=== PATIENT | male | born 1985 | race Caucasian/White ===

== ENCOUNTER 2021-08-03 09:09 | Outpatient (REF) | payer OTHER, SELFPAY ==
[2021-08-03 12:25] LABS: Thyroid Stimulating Hormone 1.33 uIU/mL (0.32-4.0)
== END 2021-08-03 09:10 | disposition home or self-care (01) ==
LOC: HO.HMGCLDS 09:09
PROVIDERS: Visit Provider Internal Medicine
DX: F41.1 Generalized anxiety disorder (principal)
CPT/HCPCS: 36415; 84443

== ENCOUNTER 2021-08-17 09:05 | Outpatient (REF) | payer OTHER, SELFPAY ==
[2021-08-23 14:56] LABS: Testosterone, Free 100.4 pg/mL (35.0-155.0); Testosterone, Total 648 ng/dL (250-1100)
== END 2021-08-17 09:06 | disposition home or self-care (01) ==
LOC: HO.HMGCLDS 09:05
PROVIDERS: PCP Internal Medicine; Visit Provider Internal Medicine
DX: F41.1 Generalized anxiety disorder (principal)
CPT/HCPCS: 36415; 84402; 84403

== ENCOUNTER 2024-10-31 14:32 | Outpatient (AMB) | payer BC, SELFPAY ==
--- NOTE | 2024-10-31 14:37 | A.OFFPC_ITS ---
Vital Signs 10/31/24 14:39 Height 5 ft 5.55 in Weight 171 lb 6 oz BMI 28.0 BP 132/72 Blood Pressure Location Lt brachial Position Sitting Pulse 88 Pulse Source Pulse Oximeter Temp 97.3 F Temp Source Temporal Artery Scan Pulse Oximetry (%) 97 Oxygen Delivery Method Room Air Intake Visit Reasons: annual exam/re-establishing care Intake Note: Patient is a new patient here to establish care for Right shoulder pain, Back pain, Testosterone issues. Transferring care from Dr Lawler. Medical records have not been requested and have note received. Employee Placement Specialist Required: No Clinical Researcher: Not Required per policy Accompanied by: Self / Same As Patient Allergies No Known Allergies Allergy (Verified 10/31/24 14:38) Tobacco use date assessed: 10/31/24 Dental Screening Dental Screen Date: 10/31/24 Did you have a dental visit in the last 12 months?: Yes Did you have a dental problem in the last 6 months where you did not have access to dental care?: No Was dental information given to patient?: Patient has dentist [facility] Medical History (Updated 10/31/24 @ 15:48 by Jeremías Lawler MD) Biceps tendinitis Generalized anxiety disorder Surgical History (Updated 10/31/24 @ 15:16 by TITI Mancini) History of wisdom tooth extraction Family History Mother Depression Back disorder Father No problems noted. Other Mental health disorder Social History Housing: Apartment Alcohol intake: current Alcohol intake frequency: a few times a week Patient Tobacco Use Status: Never used Tobacco e-Cigarette/Vaping Use: Never Used Second Hand Smoke Exposure: No service: No Current occupational status: employed Current occupation: Insurance Cognitive needs: No Hearing needs: No Vision needs: No Questionnaire PHQ-9 Over the last 2 weeks, how often have you been bothered by any of the following problems? 1. Little interest or pleasure in doing things: not at all 2. Feeling down, depressed, or hopeless: not at all 3. Trouble falling or staying asleep, or sleeping too much: not at all 4. Feeling tired or having little energy: not at all 5. Poor appetite or overeating: not at all 6. Feeling bad about yourself - or that you are a failure or have let yourself or your family down: not at all 7. Trouble concentrating on things, such as reading the newspaper or watching television: not at all 8. Moving or speaking so slowly that other people could have noticed. Or the opposite - being so fidgety or restless that you have been moving around a lot more than usual: not at all 9. Thoughts that you would be better off or of hurting yourself in some way: not at all Total score: 0 Depression Screening Interpretation: Positive Depression Screening Done: Yes Source: Developed by Drs. Noel Melgoza, Elizabeth Perea, Bradley Vela and colleagues, with an educational sreedhar from [employer]. Thrive Questionnaire Date Thrive assessed: 10/29/24 I am a: Patient What is your living situation today?: I have a steady place to live Within the past 12 months, did the food you bought not last and you didn't have the money to get more?: Never true Within the past 12 months, did you worry whether your food would run out before you got money to buy more?: Never true Do you have trouble paying for medicines?: No Do you have trouble getting transportation to medical appointments?: No Do you have trouble paying your heating and electricity bill?: No Do you have trouble taking care of your child, family member or friend?: No Do you have trouble with day-to-day activities such as bathing, preparing meals, shopping, managing finances, etc.?: No Are you currently unemployed and looking for a job?: No Are you interested in more education?: No Please select the resources that you would like help with: None Currently or been in a relationship where the following occur: No concerns reported THRIVE Score: 0 AUDIT C Alcohol Use Questionnaire (AUDIT-C) 1. How often do you have a drink containing alcohol?: 2-3 times a week 2. How many drinks containing alcohol do you have on a typical day when you are drinking?: 3 or 4 3. How often do you have six or more drinks on one occasion?: Less than monthly Total Score: 5 SHIRA-7 AMB Questionnaire SHIRA-7 Date SHIRA - 7 assessed: 10/31/24 Feeling nervous, anxious, or on edge: 0 = Not at all Not being able to stop or control worryin = Not at all Worrying too much about different things: 0 = Not at all Trouble relaxin = Not at all Being so restless that it is hard to sit still: 0 = Not at all Becoming easily annoyed or irritable: 0 = Not at all Feeling afraid as if something awful might happen: 0 = Not at all Total SHIRA-7 score (0-4 normal; 5-9 mild; 10-14 moderate; 15-21 severe): 0 Source: Developed by Drs. Noel Melgoza, Elizabeth Perea, Bradley Vela and colleagues, with an educational sreedhar from [employer]. Physical exam (Primary Care) Vital Signs: Last Vital Signs Temp 97.3 F 10/31/24 14:39 Pulse 88 10/31/24 14:39 BP 132/72 10/31/24 14:39 Pulse Ox 97 10/31/24 14:39 Oxygen Delivery Method Room Air 10/31/24 14:39 BMI result Body Mass Index 28.0 Tobacco/Smoking Status: Tobacco use Status Tobacco use date assessed 10/31/24 10/31/24 15:00 Patient Tobacco Use Status Never used Tobacco 10/31/24 15:00 e-Cigarette/Vaping Use Never Used 10/31/24 15:00 PHQ-9: PHQ-9 Score PHQ-9: Total score 0 10/31/24 15:00 Depression Screening Interpretation: Positive Thrive Assessment: Date of Thrive Assessment Date Thrive assessed 10/29/24 10/31/24 15:00 Currently or been in a relationship where the following occur: No concerns reported Coding Level of Care Code New Pt Level 4 (59134) Complex EM visit Add On G2211 Diagnoses Biceps tendinitis M75.20 Assessment & Plan Assessment & Plan (1) Biceps tendinitis: Code(s): M75.20 - Bicipital tendinitis, unspecified shoulder Category: Medical Plan: ortho referral made. Plan History of Present Illness - The patient is a 39-year-old male presenting for management of low testosterone and associated symptoms, as well as for referrals to specialists. - Reports a history of anxiety and brain fog, initially managed with Wellbutrin without success. - Approximately eight months ago, sought care from a functional [facility] doctor due to worsening symptoms. - Blood tests revealed testosterone levels around 500 ng/dL, leading to treatment with enclomiphene, which improved testosterone levels to approximately 1000 ng/dL. - Reports significant improvement in symptoms, including mental clarity, energy levels, and libido. - Experiencing muscle cramps in the calves and ankles, particularly at night, despite adequate hydration and electrolyte intake. - Prominent veins noted, which are not causing health concerns but are cosmetically noticeable. - History of biceps tendinitis, managed by an employee placement specialist. Social History - Family status: Recently with twins, two girls and two boys. - Exercise: Engages in significant physical activity, particularly involving the legs. - Hydration: Consumes at least a gallon of water daily. Review of Systems - Neurological: Reports brain fog and anxiety. Denies other neurological symptoms. - Musculoskeletal: Reports muscle cramps in calves and ankles, particularly at night. Denies other musculoskeletal symptoms. - Endocrine: Reports improvement in symptoms with enclomiphene treatment for low testosterone. Physical Exam General: Cooperative and healthy appearing Nutritional Appearance: Well nourished Orientation/consciousness: Patient oriented x3 Limitations: No limitations Head: Normal to inspection General: Appearance normal, both eyes and all related structures Neck: Normal visual inspection Chest: Normal palpation of entire chest wall Respiratory: N ormal respiratory effort Neurology: Patient oriented x3, reports previous issues with brain fog and anxiety, now resolved with treatment. Results - Labs: Testosterone level initially around 500 ng/dL, improved to approximately 1000 ng/dL with enclomiphene treatment. Plan 1. Anxiety - Continue monitoring symptoms and consider referral to mental health specialist if symptoms persist. 2. Low Testosterone - Continue enclomiphene treatment as it has shown significant improvement in symptoms. - Referral to [facility] for ongoing management. 3. Biceps Tendinitis - Referral to employee placement specialist for continued management. 4. Muscle Cramps - Consider increasing electrolyte intake and CoQ10 supplementation. 5. Prominent Veins - No immediate medical intervention required unless for cosmetic reasons. Discussion Notes I discussed with the patient the continuation of enclomiphene treatment for low testosterone, which has been effective in alleviating symptoms. We also talked about the need for referrals to [facility] and an employee placement specialist for ongoing management of low testosterone and biceps tendinitis, respectively. I advised the patient to consider increasing electrolyte intake and CoQ10 supplementation for muscle cramps. We also discussed that the prominent veins are not a health concern but can be addressed cosmetically if desired. Patient Instructions - Continue enclomiphene treatment as prescribed. - Follow up with [facility] for testosterone management. - Consult with an employee placement specialist for biceps tendinitis management. - Increase electrolyte intake and consider CoQ10 supplementation for muscle cramps. - Consider cosmetic options if concerned about prominent veins. Orders: Referrals Orthopedics Referral M75.20 - Bicipital tendinitis, unspecified shoulder
[2024-10-31 14:39] VITALS: BP 132/72; PULSE 88; TEMP 36.3; O2SAT 97; BMI 28.0
--- OUTSIDE RECORDS SUMMARY | 2024-10-31 14:44 | XMS_ITS | Patient Health Record ---
Demographics Address [address] [place] [address] Mobile Email Address Preferred Language en Marital Status unmarried Confucianism Affiliation Unknown Race White Ethnic Group Not or Lati no Author [facility] Address [address] [place] [address] Care Team Providers Care Veterans' Coordinator Name Role Phone Haider Fischer MD Primary Care Provider Mary Orosco Unavailable [phone] Allergies No Known Allergies Reason For Referral No Information Medications Medication SIG (Take, Route, Frequency, Duration) Notes Start Date End Date Status Terbinafine HCl 250 MG Oral; Duration: 28 Not-Taking Social History Tobacco Use: Social History Observation Description Date Details (start date - stop date) Never Smoker NA - NA Tobacco Use/Smoking Question Answer Notes Are you a: nonsmoker Additional Findings: Tobacco Non-User Non-smoker for personal reasons Alcohol Screen Question Answer Notes Did you have a drink contain ing alcohol in the past year? Yes How often did you have a dri nk containing alcohol in the past year? 2 to 3 times a week (3 points) How often did you have 6 or more drinks on one occasion in the past year? Weekly (3 points) Points 6 Interpretation Positive Tobacco use other than smoking: Question Answer Notes Are you an other tobacco user? No Plan Of Treatment No Information Insurance Providers Payer Name Payer Address Payer Phone Subscriber Number Group Number Insured Name Patient Relationship to Insured Coverage Start Date Coverage End Date [facility] [id number] [address] [address] [place] [address] [phone] [id number] Humberto Boateng Self - patient is the insured Medical (General) History Medical History History ICD Code Chicken pox Surgical History Surgery Date(Month/Year)
--- OUTSIDE RECORDS SUMMARY | 2024-10-31 14:44 | XMS_ITS | Data Portability ---
Author Organization [place] - [facility], [facility] Address [address] [place] [id number] Assessment No assessment recorded. Plan of Treatment Reminders Order Date Submit Date Provider Last Modified By Organization Details Last Modified Time Details Appointments None recorded. Lab surgical pathology study - PAS for fungal nails 2018 019 [email or web address] [facility] ([employer]), [address] [facility], [place], [address], 9 08:40:43 Referral None recorded. Procedures None recorded. Surgeries None recorded. Imaging None recorded. Medication Orders None recorded. Patient TargetsNo targets recorded. Patient Instructions Encounter Date Encounter Id Patient Instructions Last Modified By Organization Details Last Modified Time 09/27/2018 [id number] Discussed with patient today the various options of treating fungal nails. This includes the following: regular trimming of thickened nails, removal of nail to see if a normal nail will grow back, topical antifungal (advised there is about 20% improvement rate), oral antifungal medication (80% improvement) and laser treatment (40% improvement rate). We also discussed the recurrence rate of fungus to the nails and the need to sterilize shoes and take care of any tinea pedis to prevent recurrence of the problem once healed. Today a sample of the nail was sent for evaluation to determine if there is a fungus and patient will be called when the results are returned. As well today used Dremel to reduce thickness of the nail. He wanted Keryflex but was not a good candidate as well due to possible fungus of the nail. [email or web address] Not available 09/27/2018 16:18:57 Reason for Referral None Reported. Results Created Date Observation Date Name Description Value Unit Range Abnormal Flag Note LastModifiedBy Organization Detail LastModifiedTime 10/16/19 19 10/15/2018 hepat ic funct ion panel , serum protein, total 7.0 g/dL 6.1-8. 1 normal Not Available [facility] [place] [facility] [address], [place], [address], 10/15/2018 20:23:20 10/16/1910/15/2018 hepat ic funct ion panel , serum protein, total 7.0 g/dL 6.1-8. 1 normal Not Available [facility] [address], [place], [address], 10/15/2018 20:23:20 10/16/1910/15/2018 hepat ic funct ion panel , serum albumin 4.6 g/dL 3.6-5. 1 normal Not Available [facility] [address], [place], [address], 10/15/2018 20:23:20 10/16/1910/15/2018 hepat ic funct ion panel , serum albumin 4.6 g/dL 3.6-5. 1 normal Not Available [facility] [address], [place], [address], 10/15/2018 20:23:20 10/16/1910/15/2018 hepat ic funct ion panel , serum globulin 2.4 g/dL_ (calc ) 1.9-3. 7 normal Not Available [facility] [address], [place], [address], 10/15/2018 20:23:20 10/16/1910/15/2018 hepat ic funct ion panel , serum globulin 2.4 g/dL_ (calc ) 1.9-3. 7 normal Not Available [facility] [address], [place], [address], 10/15/2018 20:23:20 10/16/19 19 10/15/2018 hepat ic funct ion panel , serum albumin/glob ulin ratio 1.9 (calc ) 1.0-2. 5 normal Not Available [facility] [place] [facility] [address], [place], [address], 10/15/2018 20:23:20 10/16/19 19 10/15/2018 hepat ic funct ion panel , serum albumin/glob ulin ratio 1.9 (calc ) 1.0-2. 5 normal Not Available [facility] [place] [facility] [address], [place], [address], 10/15/2018 20:23:20 10/16/19 19 10/15/2018 hepat ic funct ion panel , serum bilirubin, total 1.5 mg/dL 0.2-1. 2 high Not Available [facility] [address], [place], [address], 10/15/2018 20:23:20 10/16/1910/15/2018 hepat ic funct ion panel , serum bilirubin, total 1.5 mg/dL 0.2-1. 2 high Not Available [facility] [address], [place], [address], 10/15/2018 20:23:20 10/16/1910/15/2018 hepat ic funct ion panel , serum bilirubin, direct 0.3 mg/dL < or = 0.2 high Not Available [facility] [address], [place], [address], 10/15/2018 20:23:20 10/16/1910/15/2018 hepat ic funct ion panel , serum bilirubin, direct 0.3 mg/dL < or = 0.2 high Not Available [facility] [address], [place], [address], 10/15/2018 20:23:20 10/16/19 19 10/15/2018 hepat ic funct ion panel , serum bilirubin, indirect 1.2 mg/dL _(judit c) 0.2-1. 2 normal Not Available [facility] [address], [place], [address], 10/15/2018 20:23:20 10/16/19 19 10/15/2018 hepat ic funct ion panel , serum bilirubin, indirect 1.2 mg/dL _(judit c) 0.2-1. 2 normal Not Available [facility] [place] [facility] [address], [place], [address], 10/15/2018 20:23:20 10/16/19 19 10/15/2018 hepat ic funct ion panel , serum alkaline phosphatase 66 U/L 40-115 normal Not Available [facility] [address], [place], [address], 10/15/2018 20:23:20 10/16/1910/15/2018 hepat ic funct ion panel , serum alkaline phosphatase 66 U/L 40-115 normal Not Available [facility] [address], [place], [address], 10/15/2018 20:23:20 10/16/1910/15/2018 hepat ic funct ion panel , serum AST 23 U/L 10-40 normal Not Available [facility] [address], [place], [address], 10/15/2018 20:23:20 10/16/1910/15/2018 hepat ic funct ion panel , serum AST 23 U/L 10-40 normal Not Available [facility] [address], [place], [address], 10/15/2018 20:23:20 10/16/19 19 10/15/2018 hepat ic funct ion panel , serum ALT 21 U/L 9-46 normal Not Available [facility] [address], [place], [address], 10/15/2018 20:23:20 10/16/19 19 10/15/2018 hepat ic funct ion panel , serum ALT 21 U/L 9-46 normal Not Available [facility] [address], [place], [address], 10/15/2018 20:23:20 10/16/19 19 10/15/2018 hepat ic funct ion panel , serum copy(ies) sent to: DANIEL NEGRON N [address] [id number] Not Available [facility] [address], [address], 10/15/2018 20:23:20 Result Notes None recorded. Problems No Known Problems Medical Equipment None Reported. Allergies No known drug allergies Medications Name Sig Start Date Stop Date Status Note LastModified by Organization Details LastModified Time terbinafine HCl 250 mg tablet TAKE ONE TABLET BY MOUTH EVERY WEEK DIRECTED active Not Available Not Available No t Available mometasone 0.1 % topical cream 09/27 completed Not Available Not Available Not Available azithromyci n 500 mg tablet 09/27 completed Not Available Not Available Not Available Vitals Date Recorded Body height Body mass index (BMI) Body weight Provider Name and Address Organization Details Last Updated DateTime 09/27/2018 167.64 cm 29.1 kg/m2 94156.63 g Niyah Gandara [facility] 09/27/2018 15:40:00 Social History Question Answer Notes LastModified by Organizat ion Details LastModified Time Tobacco Smoking Status Never Smoker Alice murphy [facility] 09/27/2018 15:35:58 Do You Have An Advance Directive? No Information not available 09/27/2018 What Is Your Shoe Size & Width? 10.5 Med Information not available 09/27/2018 What Was The Date Of Your Most Recent Tobacco Screening? 09/27/2018 Information not available 11/01/2018 How Much Tobacco Do You Smoke? No Information not available 09/27/2018 Has Tobacco Cessation Counseling Been Provided? No Information not available 09/27/2018 Sex: Unknown Functional Status Question Answer Note LastModified by Organization D etails LastModified Time What is your level of alcohol consumption? Moderate Information not available 09/27/2018 Mental Status None recorded. Family History Relationship Description Onset Age of this Age Resolved Age Notes LastModified by Organization Details LastModified Time Father No current problems or disability Not available 09/27 15:40:35 Mother No current problems or disability Not available 09/27 15:40:35 Medical History Condition Response High Blood Pressure N Lower Limb amputations N MRSA N Emphysema N Respiratory Disease N Circulatory Problems N Thyroid Problems N Psychiatric Care N Congenital Heart Lesions N Pacemaker N Anemia N Multiple Sclerosis N Bleeding Tendency N Deep Vein Thrombosis N Diabetes N Varicose Veins N Rheumatic Fever N Arthritis N Seizures/Epilepsy N Heart Murmur N Blood Disease N Tuberculosis N AIDS/HIV N Cancer N Chemical Dependency N Stroke N Low Blood Pressure N Asthma N Epilepsy N Peripheral Vascular Disease N Shortness of Breath N High Cholesterol N Mitral Valve Prolapse N Liver Disease N Heart Disease N Rheumatoid Arthritis N Foot Deformity N Fibromyalgia N Hepatitis A, B, or C N Ulcer N Kidney Disease N Past Encounters Encounter ID Performer Location Encounter Start Date Encounter Closed Date Diagnosis/Indication Diagnosis SNOMED-CT Code Diagnosis ICD10 Code Diagnosis Note [id number] Michele Felix DPM Office-WO [address] [address] 09/27/2018 15:28:40 09/27/2018 16:10:47 Onychomycosis 978985642 B35.1 Health Concerns Section Related Observation LastModified by Organization Detai ls LastModified Time None Recorded Concern Status LastModified by Organization Details LastModified Time None Recorded Advance Directives Directive N: Payers Insurance Date Sequence Insurance Name Policy Number Policy Roland Covered Member ID Roland Member ID Guarantor Name 10/03/2018 1 [facility] [id number] Humberto Boateng [id number] Humberto Boateng Notes Date Note Type Note Provider Name and Address Organization Details Recorded Time 9 text/html ProceduresReported by PatientProcedure NameFor name of procedure, (keryflex).HPIFor location, patient reportsleft. For aggravating factors, patient reportscannot identify. For associated symptoms, patient reportsno weakness,no numbness,no tingling,no swelling,no redness,no warmth,no radiation down leg,no drainage,no aching, andno throbbing.Patient presents to the office for keryflex. He states he had an ingrown toenail of the left great toe and had a procedure to removed the nail. Patient states the nail grew back jacked up. Michele Felix, PERRI [address] [place] [address], [phone], [facility] 09/27/2018 16:19:13
== END 2024-10-31 15:47 | disposition home or self-care (01) ==
LOC: HO.HMCH 14:33
PROVIDERS: PCP Internal Medicine; Visit Provider Internal Medicine
DX: M75.20 Bicipital tendinitis, unspecified shoulder (principal)